=== PATIENT | male | born 1950 | race Caucasian/White ===

== ENCOUNTER 2022-01-25 13:07 | Inpatient (IN) | payer BC, OTHER ==
[~2022-01-25] VITALS: Ht 185.4 cm; Wt 79.0 kg
[~2022-01-25 13:07] MED LIST: DIGO0.2570 OR; ENO120SY SC; HCTZ; METOPROLOL PO; PAROXETINE PO; RANITIDINE PO; VYTORIN; WARFARIN PO; ZOLPIDEM PO
[2022-01-25 15:35] LABS: Basophils # (auto) 0.1 10 ^3/uL (0-0.2); Basophils % (auto) 0.7 % (0.0-2.0); Eosinophils # (auto) 0 10 ^3/uL (0-0.8); Eosinophils % (auto) 0.5 % (0.0-7.0); Hematocrit 35.1 % (41.0-53.0); Hemoglobin 11.8 g/dL (13.5-17.5); Lymphocytes # (auto) 0.7 10 ^3/uL (0.4-5.4); Lymphocytes % (auto) 8.2 % (10.0-50.0); Mean Corpuscular Hemoglobin 28.5 pg (28.0-32.0); Mean Corpuscular Hgb Conc. 33.6 g/dL (32.0-36.0); Mean Corpuscular Volume 84.7 fL (80.0-100.0); Monocytes # (auto) 0.7 10 ^3/uL (0-1.3); Monocytes % (auto) 7.8 % (0.0-12.0); Neutrophils % (auto) 82.8 % (37.0-80.0); Red Blood Cells 4.14 10^6/uL (4.5-5.90); Red Cell Distribution Width 18.1 % (11.8-14.3); White Blood Cell 8.5 10^3/uL (4.4-10.8)
[2022-01-25 15:45] LABS: INR 3.38 (0.9-1.15); Partial Thromboplastin Time 37.8 sec (23.6-33.0)
[2022-01-25] MEDS ORDERED: DexAMETHasone INJECTION 10 MG in D5W 5% 50 ML IV ONE (16:00)
[2022-01-25 16:01] LABS: Alanine Aminotransferase 16 U/L (16-61); Albumin 2.4 g/dL (3.4-5.0); Anion Gap 10 (5-15); BUN/Creatinine Ratio 15.9; Blood Urea Nitrogen 10 mg/dL (7-18); Calcium 8.7 mg/dL (8.5-10.1); Carbon Dioxide 24 mmol/L (21-32); Chloride 102 mmol/L (98-107); GFR African American 162 mL/min; GFR Non-African American 134 mL/min; Glucose 160 mg/dL (74-106); Magnesium 1.8 mg/dL (1.6-2.6); Potassium 3.5 mmol/L (3.5-5.1); Sodium 136 mmol/L (136-145)
[2022-01-25 16:09] LABS: Alkaline Phosphatase 255 U/L (45-117); Aspartate Aminotransferase 208 U/L (15-37); Total Protein 6.1 g/dL (6.4-8.2)
[2022-01-25] MEDS ORDERED: SODIUM CHLORIDE 0.9% 1,000 ML IV ONE (17:30)
[2022-01-26] MEDS ORDERED: DEXTROSE (50%) 50ML SYRG IV PRN (01:00)
[2022-01-26] MEDS ORDERED: ONDANSETRON HCL 4 MG/2 ML VIAL IV PRN (01:00)
[2022-01-26] MEDS ORDERED: ACETAMINOPHEN 325 MG TAB PO PRN (01:00)
[2022-01-26] MEDS ORDERED: MORPHINE SULFATE INJ 2 MG/ml SYRG IV PRN (01:00)
[2022-01-26] MEDS ORDERED: NITROGLYCERIN 0.4 MG SL TAB SL PRN (01:00)
[2022-01-26] MEDS: InsuLIN REG 1unit/0.01ml Soln (100units/ml) SC SCH ×4 (06:55→22:00)
[2022-01-26] MEDS: CARBIDOPA W LEVODOPA 25/100mg TABLET PO SCH ×4 (06:55→22:28)
[2022-01-26] MEDS: ACCU-CHEK COMFORT CURVE STRIP VI SCH ×4 (06:56→22:27)
[2022-01-26 08:11] LABS: Urine Bacteria FEW /hpf (None Seen); Urine Blood Negative /uL (Negative); Urine Hyaline Cast FEW /lpf (0 - 2); Urine Mucus FEW (None Seen); Urine Specific Gravity 1.025 (1.001-1.035); Urine WBC 13 /hpf (0 - 3)
[2022-01-26] MEDS ORDERED: TRIAMTERENE/HCTZ 75/50MG TABLET PO SCH (10:00)
[2022-01-26] MEDS ORDERED: METOPROLOL TARTRATE 25 MG TAB PO SCH (10:00)
[2022-01-26] MEDS ORDERED: hydrALAZINE HCL 20 MG/ML VL IV PRN (15:00)
[2022-01-26 15:17] LABS: Partial Thromboplastin Time 41.3 sec (23.6-33.0)
[2022-01-26 15:22] LABS: INR 4.7 (0.9-1.15)
[2022-01-26 21:58] LABS: Folate (Folic Acid) 4.04 ng/mL (5.38-24)
[2022-01-26 22:00] VITALS: BP 100/60
[2022-01-26] MEDS ORDERED: ATORVASTATIN 20 MG TAB PO SCH (22:00)
[2022-01-26 22:50] VITALS: BP 126/63
[2022-01-27 04:10] LABS: Potassium 3.4 mmol/L (3.5-5.1)
[2022-01-27 04:12] LABS: Basophils # (auto) 0.1 10 ^3/uL (0-0.2); Eosinophils # (auto) 0.1 10 ^3/uL (0-0.8); Eosinophils % (auto) 1.4 % (0.0-7.0); Hematocrit 29.5 % (41.0-53.0); Hemoglobin 10.1 g/dL (13.5-17.5); Lymphocytes # (auto) 0.8 10 ^3/uL (0.4-5.4); Mean Corpuscular Hemoglobin 28.7 pg (28.0-32.0); Mean Corpuscular Volume 84.2 fL (80.0-100.0); Monocytes # (auto) 0.6 10 ^3/uL (0-1.3); Monocytes % (auto) 9.2 % (0.0-12.0); Neutrophils # (auto) 4.6 10 ^3/uL (1.6-8.6); Neutrophils % (auto) 75.4 % (37.0-80.0); Nucleated Red Blood Cells % 0.1 %; Red Blood Cells 3.51 10^6/uL (4.5-5.90); Red Cell Distribution Width 17.9 % (11.8-14.3)
[2022-01-27] MEDS ORDERED: FAMO20TA10 PO (04:12)
[2022-01-27] MEDS ORDERED: SODIGRA31 XX (04:12)
[2022-01-27] MEDS ORDERED: CARB-80 PO (04:12)
[2022-01-27] MEDS ORDERED: OLAN1TAB7 PO (04:12)
[2022-01-27] MEDS ORDERED: SITA100T7 PO (04:12)
[2022-01-27 04:13] LABS: Albumin 2.1 g/dL (3.4-5.0); Calcium 8.5 mg/dL (8.5-10.1); Magnesium 1.5 mg/dL (1.6-2.6)
[2022-01-27 04:16] LABS: Bilirubin, Total 7.9 mg/dL (0.2-1.0); Total Protein 5.1 g/dL (6.4-8.2)
[2022-01-27 04:51] LABS: INR 4.37 (0.9-1.15)
[2022-01-27] MEDS: ACCU-CHEK COMFORT CURVE STRIP VI SCH ×2 (06:26→11:30)
[2022-01-27] MEDS: InsuLIN REG 1unit/0.01ml Soln (100units/ml) SC SCH ×2 (06:26→12:00)
[2022-01-27] MEDS: CARBIDOPA W LEVODOPA 25/100mg TABLET PO SCH ×4 (06:26→21:40)
[2022-01-27 09:31] VITALS: BP 115/63
[2022-01-27] MEDS ORDERED: POTASSIUM CHL 20 Meq TABLET PO ONE (09:45)
[2022-01-27] MEDS ORDERED: PANTOPRAZOLE 40 MG TAB PO SCH (10:00)
[2022-01-27] MEDS: MAGNESIUM SULFATE 1GM/100ML 100 ML IV SCH ×2 (10:50→12:30)
[2022-01-27] MEDS: SODIUM CHLORIDE 0.9% 1,000 ML IV SCH (11:40)
[2022-01-27] MEDS ORDERED: IOHEXOL 300 MG/ML 100ML BOTTLE IJ ONE (11:49)
[2022-01-27] MEDS ORDERED: FOLIC ACID 1 MG TAB PO ONE (12:30)
[2022-01-27 12:56] VITALS: BP 127/65
[2022-01-27] MEDS ORDERED: FOLIC ACID 1 MG in D5W 5% 50 ML INJ ONE (13:00)
[2022-01-27] MEDS ORDERED: POLYETHYLENE GLYCOL 17 GM PWDR PO PRN (13:45)
[2022-01-27 17:18] VITALS: BP 125/66
[2022-01-27] MEDS: PANTOPRAZOLE 40 MG TAB PO SCH (21:40)
[2022-01-27 22:00] VITALS: BP 114/56
[2022-01-28] MEDS: SODIUM CHLORIDE 0.9% 1,000 ML IV SCH (00:18)
[2022-01-28 05:00] VITALS: BP 117/67
[2022-01-28] MEDS: CARBIDOPA W LEVODOPA 25/100mg TABLET PO SCH ×3 (05:40→17:40)
[2022-01-28 06:01] LABS: Hematocrit 27.1 % (41.0-53.0); Hemoglobin 9.8 g/dL (13.5-17.5)
[2022-01-28 06:14] LABS: Albumin 1.8 g/dL (3.4-5.0); Calcium 7.8 mg/dL (8.5-10.1); Magnesium 2.1 mg/dL (1.6-2.6); Potassium 3.9 mmol/L (3.5-5.1)
[2022-01-28 06:18] LABS: BUN/Creatinine Ratio 20.9; Bilirubin, Total 7.8 mg/dL (0.2-1.0); Total Protein 4.6 g/dL (6.4-8.2)
[2022-01-28 06:24] LABS: INR 3.94 (0.9-1.15)
[2022-01-28 09:00] VITALS: BP 122/68
[2022-01-28] MEDS ORDERED: OLANZapine 5 MG TAB PO SCH (10:00)
[2022-01-28] MEDS ORDERED: FOLIC ACID 1 MG TAB PO SCH (10:00)
[2022-01-28] MEDS: PANTOPRAZOLE 40 MG TAB PO SCH (10:08)
[2022-01-28] MEDS ORDERED: SODIUM CHLORIDE 0.9% 1,000 ML IV SCH (11:30)
[2022-01-28 13:00] VITALS: BP 139/64
[2022-01-28] MEDS ORDERED: FOLI1TAB6 PO (14:20)
[2022-01-28 17:00] VITALS: BP 109/60
== END 2022-01-28 20:45 | disposition hospice, home (50) | DRG 71 ==
LOC: ER 13:07 → EDBD 13:07 → TELE 01-26 00:50 → TELE-CENTR 01-26 20:10
PROVIDERS: ADMIT Nurse Practitioner; ATTEND Internal Medicine
DX: G93.41 Metabolic encephalopathy (principal); N39.0 Urinary tract infection, site not specified; C79.31 Secondary malignant neoplasm of brain; E44.0 Moderate protein-calorie malnutrition; D68.9 Coagulation defect, unspecified; R17 Unspecified jaundice; G20 Parkinson's disease; E53.8 Deficiency of other specified B group vitamins; D63.8 Anemia in other chronic diseases classified elsewhere; E78.5 Hyperlipidemia, unspecified; E86.0 Dehydration; Z20.822 Contact with and (suspected) exposure to COVID-19; R79.89 Other specified abnormal findings of blood chemistry; F17.210 Nicotine dependence, cigarettes, uncomplicated; I10 Essential (primary) hypertension; I25.10 Atherosclerotic heart disease of native coronary artery without angina pectoris; K86.9 Disease of pancreas, unspecified; I95.1 Orthostatic hypotension; R06.09 Other forms of dyspnea; Z95.2 Presence of prosthetic heart valve; Z68.23 Body mass index [BMI] 23.0-23.9, adult; Z79.899 Other long term (current) drug therapy; Z83.3 Family history of diabetes mellitus; Z85.828 Personal history of other malignant neoplasm of skin; Z95.1 Presence of aortocoronary bypass graft; Z88.7 Allergy status to serum and vaccine; Z92.21 Personal history of antineoplastic chemotherapy; Z92.3 Personal history of irradiation
CPT/HCPCS: 36415; 70450; 71045; 74177; 76705; 80053; 80061; 80162; 81001; 82607; 82746; 82962; 83036; 83605; 83735; 84443; 84484; 85014; 85018; 85025; 85610; 85730; 87086; 93005; 93306; 93886; 96360; 97163; G0378; J1100; J1815; J7060